=== PATIENT | female | born 1950 | race Caucasian/White ===

== ENCOUNTER 2017-05-10 08:38 | Day surgery (SDC) | payer MEDICARE ==
[~2017-05-10 08:38] MED LIST: Lactated Ringers 1,000 ML IV SCH; Lidocaine 2% 5 ML SDV ONE; Propofol 200 MG/20 ML SDV ONE
--- NOTE | 2017-05-10 09:06 | PCM.PREANE ---
Preanesthetic Assessment - Anesthesia/Transfusion/Family Hx Anesthesia History: Prior Anesthesia Without Reaction Family History of Anesthesia Reaction: No Transfusion History: Prior Transfusion Without Reaction Intubation History: Unknown - Review of Systems General: No Symptoms Pulmonary: No Symptoms Cardiovascular: No Symptoms Gastrointestinal: Abdominal Pain Neurological: No Symptoms Other: Reports: None - Physical Assessment O2 Sat by Pulse Oximetry: 95 Respiratory Rate: 16 Vital Signs: Last Vital Signs Temp 37.0 C 05/10/17 08:58 Pulse 77 05/10/17 08:58 Resp 16 05/10/17 08:58 BP 126/79 05/10/17 08:58 Pulse Ox 95 05/10/17 08:58 Height: 1.63 m Weight: 92.986 kg ASA Class: 2 Mental Status: Alert & Oriented x3 Airway Class: Mallampati = 2 Dentition: Reports: Partial (upper) Thyro-Mental Finger Breadths: 3 Mouth Opening Finger Breadths: 2 ROM/Head Extension: Limited/Partial Lungs: Clear to Auscultation, Normal Respiratory Effort Cardiovascular: Regular Rate, Regular Rhythm - Allergies Allergies/Adverse Reactions: Allergies Allergy/AdvReac Type Severity Reaction Status Date / Time codeine Allergy Dizziness Verified 05/04/17 08:45 procaine [From Novocain] Allergy Rash Verified 05/04/17 08:45 - Blood Blood Available: No - Anesthesia Plan Pre-Op Medication Ordered: None - Acknowledgements Anesthesia Type Planned: MAC Pt an Appropriate Candidate for the Planned Anesthesia: Yes Alternatives and Risks of Anesthesia Discussed w Pt/Guardian: Yes Pt/Guardian Understands and Agrees with Anesthesia Plan: Yes PreAnesthesia Questionnaire HEENT History: Reports: Other (See Below) Other HEENT History: wears glasses Cardiovascular History: Reports: Afib (h/o a. fib. 15 years ago treated with ablation.), High Cholesterol Gastrointestinal History: Reports: Colon Polyp, Diverticulosis, GERD Genitourinary History: Reports: None ALMOND GRINDER History: Reports: , Spontaneous , Other (See Below) (h/ o placental abruption) Musculoskeletal History: Reports: Fracture Neurological History: Reports: Migraines Endocrine/Metabolic History: Reports: Obesity/BMI 30+ Hematologic History: Reports: Blood Transfusion(s) Other Hematologic History: blood transfusion with c/section - Past Surgical History Head Surgeries/Procedures: Reports: None HEENT Surgical History: Reports: Tonsillectomy Cardiovascular Surgical History: Reports: Cardiac Ablation GI Surgical History: Reports: Cholecystectomy, Colonoscopy Female Surgical History: Reports: Section, Hysterectomy, Oophorectomy Other Musculoskeletal Surgeries/Procedures:: surgery for left ankle fx - SUBSTANCE USE Smoking Status *Q: Never Smoker Recreational Drug Use History: No - HOME MEDS Home Medications: Home Meds Calcium Citrate/Vitamin D3 [Citracal + D Maximum Caplet] 1 tab PO DAILY [History] Magnesium Oxide [Magnesium] 400 mg PO DAILY 05/04/17 [History] Vitamin B Complex 1 tab PO DAILY 05/04/17 [History] atorvaSTATin Calcium [Atorvastatin Calcium] 20 mg PO DAILY 05/04/17 [History] - CURRENT (IN HOUSE) MEDS Current Meds: Current Medications Lactated Ringer's (Ringers, Lactated) 1,000 mls @ 125 mls/hr IV ASDIRECTED [facility] Last Admin: 05/10/17 09:01 Dose: 125 mls/hr Discontinued Medications Lactated Ringer's (Ringers, Lactated) 1,000 mls @ 125 mls/hr IV ASDIRECTED [facility] Lidocaine (Xylocaine-Mpf 2%) Confirm Administered Dose 5 ml .ROUTE .STK-MED ONE Stop: 05/10/17 07:41 Propofol (Diprivan 20 Ml) Confirm Administered Dose 400 mg .ROUTE .STK-MED ONE Stop: 05/10/17 07:41
[2017-05-10] MEDS ORDERED: Lactated Ringers 1,000 ML IV SCH (10:15)
--- NOTE | 2017-05-10 10:18 | PCM.OPNOTE ---
- General Post-Op/Procedure Note Date of Surgery/Procedure: 05/10/17 Operative Procedure(s): Esophagogastroduodenoscopy with gastric biopsies and gastric polypectomy. Colonoscopy with cold sigmoid colon polypectomy Pre Op Diagnosis: Progressive heartburn. Left-sided abdominal pain with bloating. Personal history of colon polyps. Post-Op Diagnosis: Chronic gastritis. Gastric polyp. Sigmoid polyp. Sigmoid diverticulosis. Anesthesia Technique: MAC (ASA II) Primary Surgeon: Tommy Stevenson Condition: Good Free Text/Narrative:: Dictation [id number] CPT CODE 00294/20291
--- NOTE | 2017-05-10 10:40 | PCM.POSTAN ---
POST ANESTHESIA ASSESSMENT - MENTAL STATUS Mental Status: Alert, Oriented - RESPIRATORY Respiratory Status: respiratory rate WNL, Airway Patent, O2 Saturation Stable - CARDIOVASCULAR CV Status: Pulse Rate WNL, Blood Pressure Stable - GASTROINTESTINAL GI Status: No Symptoms - PAIN Pain Score: 0 - POST OP HYDRATION Hydration Status: Adequate & Stable - OBSERVATIONS Free Text/Narrative:: no anesthesia problems.
[2017-05-10 10:42] VITALS: BP 116/65
--- NOTE | 2017-05-12 09:15 | OR ---
SURGEON: Tommy Stevenson M.D. DATE OF PROCEDURE: 05/10/2017 OPERATION PERFORMED: Esophagogastroduodenoscopy with biopsy. ANESTHESIA: MAC. ASA CLASSIFICATION: II. PREOPERATIVE DIAGNOSIS: Progressive heartburn. POSTOPERATIVE DIAGNOSES: 1. Gastritis. 2. Small hiatal hernia. 3. Gastric polyp. DESCRIPTION OF PROCEDURE: The patient was taken to the endoscopy room and positioned on the endoscopy table in the left lateral decubitus in the supine position. Time-out was called for appropriate identification of the patient and procedure. A bite block was placed between the patient's teeth. The gastroscope was inserted into the mouth and advanced without difficulty through the esophagus and stomach, into the duodenum, where examination was carried out in a retrograde fashion. The duodenum shows no acute inflammatory changes. The scope was withdrawn into the stomach, which does show mild chronic appearing gastritis. Antral biopsies were obtained to look for the presence of Helicobacter pylori. The gastroscope was then retroflexed to visualize the proximal stomach. The patient does have a small hiatal hernia. She also had one gastric polyp. This was removed as the scope was withdrawn. The GE junction was well defined, shows minimal inflammatory changes. The esophagus demonstrated good contractility. The vocal cords were visualized as the scope was withdrawn and noted to move symmetrically. The gastroscope was then removed. The patient tolerated this portion of the procedure well. Following colonoscopy, she was taken to recovery room in stable condition. CLIFTON ACEVEDO /[id number]
--- NOTE | 2017-05-12 09:15 | OR ---
SURGEON: Tommy Stevenson M.D. DATE OF PROCEDURE: 05/10/2017 OPERATION PERFORMED: Colonoscopy with cold sigmoid colon polypectomy. ANESTHESIA: MAC. ASA CLASSIFICATION: II. PREOPERATIVE DIAGNOSES: 1. Personal history of colon polyps. 2. Abdominal pain with bloating. POSTOPERATIVE DIAGNOSES: 1. Sigmoid polyp. 2. Sigmoid diverticulosis. DESCRIPTION OF PROCEDURE: With the patient having completed esophagogastroduodenoscopy with biopsy, she was now positioned in the left lateral decubitus position. The colonoscope was inserted into the rectum and advanced with minimal difficulty to the cecum. Cecum was identified by internal landmarks and external pressure. The colonoscope was retroflexed in the cecum to visualize the ascending colon from below. The colonoscope was then straightened and slowly withdrawn. The cecum, ascending colon, hepatic flexure, transverse colon, splenic flexure, and descending colon showed no tumors, polyps, diverticula, or angiodysplastic changes. There was no evidence of inflammatory bowel disease. Sigmoid colon demonstrates numerous diverticula. At the distal sigmoid proximal rectum, one polyp was encountered and removed with the cold biopsy forceps. The colonoscope was withdrawn to the rectum and retroflexed to visualize the anal orifice from above. No tumors, polyps, or acute hemorrhoidal changes were noted. The colonoscope was then straightened, the rectum aspirated, and the colonoscope removed. The patient tolerated the procedure well and was taken to recovery room in stable condition. CLIFTON ACEVEDO /[id number]
== END 2017-05-10 11:00 | disposition home or self-care (01) ==
LOC: MW.SDS 08:38
PROVIDERS: ATTEND Surgery
DX: Z12.11 Encounter for screening for malignant neoplasm of colon (principal); K63.5 Polyp of colon; K31.7 Polyp of stomach and duodenum; K29.50 Unspecified chronic gastritis without bleeding; Z86.010 Personal history of colon polyps; K57.30 Diverticulosis of large intestine without perforation or abscess without bleeding; K44.9 Diaphragmatic hernia without obstruction or gangrene; K21.9 Gastro-esophageal reflux disease without esophagitis; E78.00 Pure hypercholesterolemia, unspecified; Z88.8 Allergy status to other drugs, medicaments and biological substances; Z79.899 Other long term (current) drug therapy; Z90.710 Acquired absence of both cervix and uterus; Z98.890 Other specified postprocedural states
CPT/HCPCS: 43239; 45380; J7120; 00740; 88305; 88312; J2704